=== PATIENT | male | born 1955 | race Caucasian/White ===

== ENCOUNTER → 2018-04-25 | Outpatient (CLI) | payer OTHER ==
--- NOTE | 2018-04-25 10:18 | DIAGNOSTIC IMAGING REPORT ---
L KNEE 4 OR MORE HISTORY: 62 years-old Male LEFT KNEE PAIN acute left knee pain COMPARISON: None available TECHNIQUE: 4 views of the left knee FINDINGS: Standing AP view of the bilateral knees demonstrates severe medial compartment joint space narrowing about the right knee. Moderate to severe left knee medial compartment joint space narrowing with subchondral sclerosis and marginal osteophytosis. Mild lateral compartment marginal osteophytosis with mild to moderate degenerative changes of the patellofemoral joint. Small knee joint effusion. No acute fracture or subluxation. 2.1 cm soft tissue ossification is noted lateral to the lateral femoral condyle. Mild soft tissue prominence about the knee, most pronounced medially. IMPRESSION: 1. No acute fracture or subluxation. 2. 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 3. Small joint effusion. The above report was generated using voice recognition software. It may contain grammatical, syntax or spelling errors. Electronically signed by: Navid Dunham M.D. 04/25/2018 10:17 AM Dictated Date/Time: 04/25/2018 10:15 AM
== END | disposition home or self-care (01) ==
LOC: C.RDSM 09:40
PROVIDERS: ATTEND Physician Assistant
DX: M25.562 Pain in left knee (principal); M17.12 Unilateral primary osteoarthritis, left knee; M25.462 Effusion, left knee